=== PATIENT | female | born 1985 | race Caucasian/White ===

== ENCOUNTER → 2018-01-04 | Outpatient (CLI) | payer BC ==
--- NOTE | 2018-01-04 16:13 | RAD ---
NUCLEAR MEDICINE VENTILATION PERFUSION SCAN History: Dyspnea x2 weeks. Comparison: None. Technique: Ventilation portion performed after inhalation of 11 mCi xenon-133 gas. Initial breath-hold, equilibrium and washout phase anterior and posterior images of the lungs acquired. Perfusion portion performed after intravenous administration of 6 mCi Technetium 99m MAA. Multiple projection planar images of the lungs were obtained. Findings: The initial breath-hold ventilation images are homogeneous. No retention of tracer is seen on the washout phase images. Perfusion images demonstrate no perfusion defects. IMPRESSION: Normal VQ scan. Negative for pulmonary embolism. Electronically signed by: Gregorio Burnham MD (01/04/2018 4:10 PM) [id number]
--- NOTE | 2018-01-04 18:11 | RAD ---
PROCEDURE: CHEST PA LATERAL CLINICAL INDICATION: Dyspnea.. ABNORMAL CT, CHEST XRAY NEEDED FOR LUNG PERFUSION (VQ). NO PRIORS COMPARISON: None FINDINGS: No pneumothorax identified. Cardiac and mediastinal contours unremarkable. No pulmonary consolidation or acute airspace disease. No acute osseous abnormalities identified. IMPRESSION: No pulmonary consolidation or acute airspace disease. Electronically signed by: Moses Howard DO (01/04/2018 6:07 PM) [facility]
== END | disposition home or self-care (01) ==
LOC: NM 14:56
PROVIDERS: ATTEND Family Medicine
DX: R06.02 Shortness of breath (principal); R06.00 Dyspnea, unspecified
CPT/HCPCS: 71046; 78582; 96374; A9540; A9558